=== PATIENT | male | born 2000 | race African-American/Black ===

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

== ENCOUNTER 2022-04-14 13:35 | Emergency (ER) | payer BC, OTHER ==
[~2022-04-14] VITALS: Ht 177.8 cm; Wt 61.3 kg
[2022-04-14 14:21] VITALS: BP 106/56
[2022-04-14] MEDS ORDERED: ACET-1080 PO (14:32)
== END 2022-04-14 14:44 | disposition home or self-care (01) ==
LOC: ER 13:35
DX: G44.209 Tension-type headache, unspecified, not intractable (principal); F17.210 Nicotine dependence, cigarettes, uncomplicated; F12.10 Cannabis abuse, uncomplicated; Z90.49 Acquired absence of other specified parts of digestive tract
CPT/HCPCS: 70450